=== PATIENT | male | born 1990 | race Caucasian/White ===

== ENCOUNTER 2018-06-14 11:34 | Inpatient (IN) | payer OTHER ==
[~2018-06-14 11:34] MED LIST: KEPPRA500 MG PO; KEPPRA750 MG PO; TRILEPTAL300 MG PO; TRILEPTAL600 MG PO; VIMPAT200 MG PO
== END 2018-06-17 09:51 | disposition home or self-care (01) | DRG 133 ==
LOC: CIR.AMB 11:34 → O/R 21:28 → SURH 21:28
PROVIDERS: Otolaryngology
PROC: 00BM0ZZ Excision of Facial Nerve, Open Approach (ICD-10-PCS; 2018-06-14)
PROC: 0CT80ZZ Resection of Right Parotid Gland, Open Approach (ICD-10-PCS; principal; 2018-06-14 07:15)
DX: C07 Malignant neoplasm of parotid gland (principal); C47 Malignant neoplasm of peripheral nerves and autonomic nervous system; G40.89 Other seizures; G51.0 Bell's palsy

== ENCOUNTER 2020-01-18 13:39 | Outpatient (CLI) | payer OTHER | END 2020-01-18 16:00 | disposition home or self-care (01) | LOC: OFIC 805 13:39 | DX: G51.0 Bell's palsy (principal); C07 Malignant neoplasm of parotid gland ==

== ENCOUNTER 2020-07-23 08:49 | Outpatient (CLI) | payer OTHER | END 2020-07-23 10:00 | disposition home or self-care (01) | LOC: OFIC 805 08:49 | PROVIDERS: ATTEND Otolaryngology | DX: G51.0 Bell's palsy (principal); C07 Malignant neoplasm of parotid gland ==

== ENCOUNTER 2023-04-14 08:50 | Emergency (ER) | payer OTHER ==
[~2023-04-14] VITALS: Ht 180.3 cm; Wt 104.3 kg
[2023-04-14] MEDS ORDERED: DEPAKOTE ER250 MG (09:04)
[2023-04-14] MEDS ORDERED: DEPAKOTE ER500 MG (09:04)
[2023-04-14] MEDS ORDERED: ZITHROMAX500 MG PO (09:45)
[2023-04-14] MEDS ORDERED: MOMETASONE FURO17 GM NASAL (09:45)
== END 2023-04-14 09:50 | disposition home or self-care (01) ==
LOC: ER 08:50
DX: R09.81 Nasal congestion (principal); J32.0 Chronic maxillary sinusitis; I10 Essential (primary) hypertension; Z85.9 Personal history of malignant neoplasm, unspecified; Z88.6 Allergy status to analgesic agent; Z91.018 Allergy to other foods; Z91.013 Allergy to seafood; Z20.822 Contact with and (suspected) exposure to COVID-19